=== PATIENT | female | born 1985 | race Caucasian/White ===

== ENCOUNTER 2021-07-05 23:11 | Emergency (ER) | payer BC ==
[~2021-07-05] VITALS: Ht 165 cm; Wt 104.0 kg
--- OUTSIDE RECORDS SUMMARY | 2021-07-05 23:21 | XMS REPORT | Clinical Summary ---
Author Author Organization Address Unknown Phone Unavailable Care Team Providers Care Apprentice Painter Hand Name Role Phone Otf Francois DO PCP Allergies Comments Active Allergy Reactions Severity Noted Date Duloxetine 12/18/2017 Meperidine 12/18/2017 Levofloxacin 12/18/2017 Morphine 12/18/2017 Penicillins 12/18/2017 Medications End Date Status Medication Sig Dispensed Refills Start Date Active thiamine 100 MG tablet Take 100 mg 0 by mouth daily. Active ibuprofen (ADVIL,MOTRIN) Take 400 mg 0 400 MG tablet by mouth as needed for pain. Active promethazine-codeine Take 5 mL by 120 mL 0 0 (PHENERGAN WITH CODEINE) mouth every 4 8 6.25-10 mg/5 mL syrup (four) hours as needed for cough. Active Problems No known active problems Family History Medical History Relation Name Comments COPD Father Cancer Father Heart disease Father Stroke Father Heart attack Maternal Grandmother COPD Mother Cancer Mother Heart disease Mother Relation Name Status Comments Father Maternal Grandmother Mother Social History Date Tobacco Use Types Packs/Day Years Used Former Smoker Smokeless Tobacco: Never Used Comments Alcohol Use Standard Drinks/Week No 0 (1 standard drink = 0.6 o z pure alcohol) Sex Assigned at Date Recorded Not on file Last Filed Vital Signs Reading Time Taken Comments Vital Sign 122/82 12/18/2017 8:32 AM CDT Blood Pressure 79 12/18/2017 8:32 AM CDT Pulse 36.7 C (98.1 F) 12/18/2017 8:32 AM CDT Temperature 18 12/18/2017 8:32 AM CDT Respiratory Rate 98% 12/18/2017 8:32 AM CDT Oxygen Saturation - - Inhaled Oxygen Concentration 102.9 kg (226 lb 14.4 oz) 12/18/2017 8:32 AM CDT Weight 167.6 cm (5' 6") 12/18/2017 8:32 AM CDT Height 36.62 12/18/2017 8:32 AM CDT Body Mass Index Plan of Treatment Health Maintenance Due Date Last Done Comments Td/Tdap# 1987 Cervical Cancer Screening 01/04/2008 via Pap Smear Influenza Vaccine (#1) 2021 Pneumococcal Vaccine: Aged Out No longer eligib le based on patient's age to Pediatrics (0 to 5 Years) complete this topic and At-Risk Patients (6 to 64 Years) Results Not on filefrom Last 3 Months Insurance Type Payer Benefit Subscriber ID Effective Phone Address Plan / Dates Group [facility] [[email or web address]] [id number] 2017-P [phone] [id number] [place] [address] Advance Directives For more information, please contact: [phone] 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
--- NOTE | 2021-07-06 00:21 | ED Neurological Problem ---
General Chief Complaint: Head/Cervical Problems Stated Complaint: LEFT SIDE OF HEAD VIBRATING Nursing Triage Note: PT AMB TO ER WITH C/O L SIDE OF HEAD HAVING A VIBRATING SENSATION WHILE DRIVING. PT SAID HER NECK HAS BEEN HURTING THE LAST COUPLE OF DAYS ALSO Source: patient Exam Limitations: no limitations History of Present Illness Date Seen by Provider: Jul 06, 2021 Time Seen by Provider: 00:04 Initial Comments Patient to the ER by private conveyance chief complaint that she was enjoying a nice day out with her girlfriend in [place] and driving home towards [place] where she lives when she started having a tingling sensation over the distribution of her left face that felt like a buzzing but there was no tinnitus no pulsing. No hearing of anything. It lasted for less than 10 seconds. It made her nervous so she pulled over than her girlfriend and so she come to the ER to be checked out. She does not have any personal medical history. She has her tubes tied. 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 She has no personal family history of early onset coronary disease or stroke. She does not have any hypertension hyperlipidemia. She says she does have quite a bit of anxiety and it causes her blood pressure to be high but she says her doctor did determine that her resting blood pressure is normal. Patient does feel she has some fullness in her left ear. No fevers chills nausea. She says she had a fullness in her ever since she had Covid a few weeks ago. Allergies and Home Medications Patient Home Medication List Home Medication List Reviewed: Yes Review of Systems Review of Systems Constitutional: No chills, No diaphoresis Eyes: Denies Blindness, Denies Blurred Vision Ears, Nose, Mouth, Throat: denies ear pain, denies ear discharge Respiratory: No cough, No short of breath Cardiovascular: No edema, No palpitations Gastrointestinal: No abdominal pain, No constipation, No diarrhea Musculoskeletal: No back pain, No joint pain All Other Systems Reviewed Negative Unless Noted: Yes Past Vksejul-Kbmraz-Obsnxd Hx Patient Social History Tobacco Use?: No Substance use?: No Alcohol Use?: No Pt feels they are or have been: No Immunizations Up To Date Influenza Vaccine Up-to-Date: Yes; Up-to-Date First/Initial COVID19 Vaccinat: JANUARY 2021 COVID19 Vaccine 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 oz. 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 They were transient and have not came back. She does have otitis media effusion on the left side and may have a labyrinthitis causing a transient irritation of the cranial nerve #7. We discussed topical steroids and she says she has been told to do this in the past for these weird symptoms and she did not like the way it tasted. We will put her on some prednisone and she is okay with this plan. She has no persistent neurologic deficits. NIH is 0 points. Departure Impression Primary Impression: VII cranial nerve disorder Additional Impression: Labyrinthitis of left ear Disposition: 01 HOME, SELF-CARE Condition: Stable Departure-Patient Inst. Decision time for Depature: 00:22 Referrals: NO,LOCAL PHYSICIAN (PCP/Family) Primary Care Physician Patient Instructions: Labyrinthitis Add. Discharge Instructions: Prednisone 2 tablets daily for the next 5 days to help relieve your labyrinth- itis. Follow-up with your primary care doctor if your symptoms persist. Return to the nearest ER if you have new or worrisome symptoms All discharge instructions reviewed with patient and/or family. Voiced understanding. Scripts Prednisone (Prednisone) 20 Mg Tab 40 MG PO DAILY for 5 Days, #10 TAB 0 Refills Prov: DIVINE CARO 07/06/21 DIVINE CARO Jul 06, 2021 00:21
[2021-07-06] MEDS ORDERED: PRD20T PO (00:26)
[2021-07-06 00:53] VITALS: BP 166/86
== END 2021-07-06 00:53 | disposition home or self-care (01) ==
LOC: ER 23:18
DX: G51.9 Disorder of facial nerve, unspecified (principal); H83.02 Labyrinthitis, left ear; Z86.16 Personal history of COVID-19
CPT/HCPCS: 99281